=== PATIENT | male | born 1965 | race Caucasian/White ===

== ENCOUNTER 2022-09-24 21:33 | Emergency (ER) | payer OTHER ==
[~2022-09-24] VITALS: Ht 177.8 cm; Wt 75.0 kg
--- NOTE | 2022-09-24 21:38 | ED Fall/Injury ---
General Stated Complaint: FELL OFF HORSE,RIB PAIN History of Present Illness Date Seen by Provider: Sep 24, 2022 Time Seen by Provider: 21:38 Initial Comments 57yr M with no significant PMH, is here after he was bucked off a [facility] at the [facility] today. This occurred around 2100pm today. Pt came walking into the ER with no assistance. Pt states his left side ribs are painful. Pt lives in [place] and does not want to drive back in pain. Pt states he is not SOB, but his main issue is the pain in his lower left rib. Denies LOC, dizziness, chest pain, palpitations, headache, dyspnea. Allergies and Home Medications Allergies Coded Allergies: No Known Drug Allergies (Unverified , 09/24/22) Patient Home Medication List Home Medication List Reviewed: Yes Review of Systems Review of Systems Constitutional: no symptoms reported Eyes: No Symptoms Reported Ears, Nose, Mouth, Throat: no symptoms reported Respiratory: no symptoms reported Cardiovascular: no symptoms reported Gastrointestinal: no symptoms reported Genitourinary: no symptoms reported Musculoskeletal: see HPI, other (rib pain ) Skin: no symptoms reported Psychiatric/Neurological: No Symptoms Reported Physical Exam Vital Signs Vital Signs - First Documented 09/24/22 21:40 Temp 36.0 Pulse 78 Resp 16 B/P (MAP) 110/62 (78) Capillary Refill : Height, Weight, BMI Height: '" Weight: lbs. oz. kg; BMI Method: General Appearance: WD/WN, mild distress HEENT: PERRL/EOMI, normal ENT inspection Neck: non-tender, full range of motion, supple, normal inspection, other (Midline no deviation) Cardiovascular: normal peripheral pulses, regular rate, rhythm Respiratory: lungs clear, normal breath sounds (Equal on both sides, oxygen saturation is 97% on room air. 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, no motor/sensory deficits, alert, normal mood/affect, oriented x 3 Skin: normal color Petey Coma Score Best Eye Response: (4) Open Spontaneously Best Verbal Response: (5) Oriented Best Motor Response: (6) Obeys Commands [place] Total: 15 Progress/Results/Core Measures Results/Orders My Orders Orders - GAVIOTA SCOTT MD Ribs/Bilateral With Chest (09/24/22 21:37) Ct Chest Wo (09/24/22 22:08) Fentanyl Inj (Sublimaze Injection) (09/24/22 22:15) Fentanyl Inj (Sublimaze Injection) (09/24/22 22:15) Hydromorphone Injection (Dilaudid Inject (09/24/22 22:45) Ed Iv/Invasive Line Start (09/24/22 22:39) Cbc With Automated Diff (09/24/22 22:39) Comprehensive Metabolic Panel (09/24/22 22:39) Magnesium (09/24/22 22:39) Protime With Inr (09/24/22 22:39) Partial Thromboplastin Time (09/24/22 22:39) Hydromorphone Injection (Dilaudid Inject (09/24/22 22:41) Lidocaine 1% Inj 20 Ml (Xylocaine 1% Inj (09/24/22 22:55) Rx-Oxycodone/Apap 5-325 Mg (Rx-Percocet (09/24/22 23:45) Rx-Oxycodone/Apap 5-325 Mg (Rx-Percocet (09/24/22 23:40) Medications Given in ED Current Medications Medications Dose Ordered Sig/Michael Route Start Time Stop Time Status Last Admin Dose Admin Fentanyl Citrate 50 mcg ONCE ONCE IVP 09/24/22 22:15 09/24/22 22:16 DC 09/24/22 22:05 50 MCG Hydromorphone HCl 0.5 mg ONCE ONCE IV 09/24/22 22:45 09/24/22 22:46 DC 09/24/22 23:00 0.5 MG Oxycodone/ Acetaminophen 1 ea Q6HR PRN PO 09/24/22 23:45 09/24/22 23:52 DC 09/24/22 23:44 1 EA Vital Signs/I&O 09/24/22 21:40 Temp 36.0 Pulse 78 Resp 16 B/P (MAP) 110/62 (78) Progress Progress Note : Progress Note 1. LEFT SIDE 7th RIB FRACTURE WITH PNEUMOTHORAX: - CXR: There is a questionable left-sided pneumothorax with lucency over the medial pleural space. Consider chest CT for further evaluation. No definite rib fracture is seen. There is no pleural fluid or consolidation. - CT CHEST: There is a small to moderate left pneumothorax and an acute fracture of the left seventh rib laterally. - Pt would not allow labs to be done and also refused CT head and neck -I have discussed the CT chest results with radiologist, Dr.Mario Meade, via phone, and discussed the percentage of pneumothroax, and the radiologist stated approximately 15%, and may possibly range from 15% to 20%. - Discussed with surgery consult, Dr Westbrook, regarding thoravent insertion. Initially was going to place throavent and everything wad set up for it in pt's room, but then after talking to radiologist and spoke to surgeon once again, and since pt's vitals are normal, and no SOB, and his O2 saturation is 97-100% on room air, the plan was to admit pt to [facility] and have a repeat CXR in the morning to see if it is worsening. -Initially patient's was saying that she did not want to take the patient home all the way to [place], and would rather have him admitted here. Later she didn't want to have him admitted anywhere in [place], and wanted to take him to [place] because she states her insurance won't pay for anything out of state. Pt also refused ambulance transfer or flight transfer. Pt then refused thora-vent and wants to go home, and does not want to go to any hospital in [place] or [place]. Pt states he has had a large pneumothorax in the past and he did nothing for it and it resolved on its own, so he does not want any intervention now. Pt wants to go home. I have explained risks and benefits to both pt and his in detail , and explained in detail that lack of intervention can lead to respiratory distress and even , Pt and both refused , and wants pt to go to a hospital in [place], but pt does not want to go to any hospital, and just wants to go home. - Pt signed AMA and refusal form - Take home percocet tablets given for severe pain - Pt's vitals stable entire time in ER with O2 sat stable on room air Diagnostic Imaging Diagonstic Imaging: Xray, CT Plain Films/CT/US/NM/MRI: chest Comments [facility]. [place], [place] NAME: SHIRLEY HODGE [facility] REC#: [id number] PT STATUS: REG ER : 1965 PHYSICIAN: GAVIOTA SCOTT MD ADMIT DATE: 09/24/22/ER FS Draft Date of Exam:09/24/22 RIBS/BILATERAL WITH CHEST INDICATION: Bilateral rib pain. EXAMINATION: PA chest and AP and oblique views of the ribs on both sides were obtained. FINDINGS: Heart and mediastinal silhouette are normal in appearance. The lungs are clear. There is no pleural fluid. There is a questionable left pneumothorax, medially. The right ribs appear intact. No definite left-sided rib fracture is seen. IMPRESSION: There is a questionable left-sided pneumothorax with lucency over the medial pleural space. Consider chest CT for further evaluation. No definite rib fracture is seen. There is no pleural fluid or consolidation. Dictated on workstation # [id number] Dict: 09/24/222157 Trans: 09/24/222204 [facility] [id number] Interpreted by: BRITTNI BARTHOLOMEW MD Electronically signed by: Departure Impression Primary Impression: Pneumothorax on left Additional Impression: Fall from horse Disposition: AGAINST MEDICAL ADVICE Condition: Against Medical Advice (ERASED) GAVIOTA SCOTT MD Sep 24, 2022 21:38
[2022-09-24 21:40] VITALS: BP 110/62
--- NOTE | 2022-09-24 22:05 | Diagnostic Imaging Report ---
INDICATION: Bilateral rib pain. EXAMINATION: PA chest and AP and oblique views of the ribs on both sides were obtained. FINDINGS: Heart and mediastinal silhouette are normal in appearance. The lungs are clear. There is no pleural fluid. There is a questionable left pneumothorax, medially. The right ribs appear intact. No definite left-sided rib fracture is seen. IMPRESSION: There is a questionable left-sided pneumothorax with lucency over the medial pleural space. Consider chest CT for further evaluation. No definite rib fracture is seen. There is no pleural fluid or consolidation. Dictated by: Dictated on workstation # [id number]
[2022-09-24] MEDS ORDERED: fentaNYL INJ 100 MCG/2 ML AMP IVP ONE (22:15)
[2022-09-24] MEDS ORDERED: fentaNYL INJ 100 MCG/2 ML AMP ONE (22:15)
[2022-09-24] MEDS ORDERED: HYDROmorphone 2 MG/ML VIAL (DILAUDID) ONE (22:41)
[2022-09-24] MEDS ORDERED: HYDROmorphone 2 MG/ML VIAL (DILAUDID) IV ONE (22:45)
[2022-09-24] MEDS ORDERED: LIDOCAINE 1% INJ 20 ML VIAL ONE (22:55)
[2022-09-24] MEDS ORDERED: RX-OXYCODONE/APAP 5-325 MG #4 TAB PK PO ONE (23:40)
[2022-09-24] MEDS ORDERED: RX-OXYCODONE/APAP 5-325 MG #4 TAB PK PO PRN (23:45)
--- NOTE | 2022-09-25 06:49 | Diagnostic Imaging Report ---
PROCEDURE: CT chest without contrast. TECHNIQUE: Multiple contiguous axial images were obtained through the chest without the use of intravenous contrast. Auto Exposure Controls were utilized during the CT exam to meet ALARA standards for radiation dose reduction. INDICATION: Trauma, fall from a horse with left-sided rib pain and chest pain. Recent chest x-ray raising the question of a left-sided pneumothorax. CORRELATION is made with chest radiograph from earlier the same evening. Heart size is normal. There is no pericardial or pleural fluid identified. No mediastinal hematoma is identified. There is a moderate-sized left-sided pneumothorax. No pulmonary contusion is seen. Right lung is clear. There is a nondisplaced fracture involving the left 7th rib laterally. No other rib fractures are identified. There is a healing fracture involving the right lateral 9th rib. Upper abdomen is unremarkable. IMPRESSION: Moderate-sized left pneumothorax without evidence of hemothorax. There is an acute left 7th rib fracture as well as a subacute healing right-sided 9th rib fracture. Dictated by: Dictated on workstation # [id number]
== END 2022-09-24 23:45 | disposition left against medical advice (07) ==
LOC: ER FS 21:36
DX: S27.0XXA Traumatic pneumothorax, initial encounter (principal); S22.32XA Fracture of one rib, left side, initial encounter for closed fracture; Z28.310 Unvaccinated for COVID-19; V80.010A Animal-rider injured by fall from or being thrown from horse in noncollision accident, initial encounter
CPT/HCPCS: 71111; 71250; 99281